=== PATIENT | female | born 1980 | race Caucasian/White ===

== ENCOUNTER 2016-07-08 11:41 | Outpatient (CLI) ==
[2012-12-17 13:57] VITALS: BMI 23.6
[2016-07-08 13:58] LABS: BASOPHILS % (AUTO) 0.3 % (0.0-3.0); EOSINOPHILS # (AUTO) 0.1 K/ul (0.0-0.7); EOSINOPHILS % (AUTO) 1.5 % (0.0-7.0); HEMOGLOBIN 13.9 g/dl (12.0-16.0); IMMATURE GRANULOCYTE % (AUTO) 0.3 % (0.0-5.0); LYMPHOCYTES # (AUTO) 1.4 K/uL (0.60-3.4); MEAN CORPUSCULAR HGB CONC 33.1 (31.8-35.4); MEAN CORPUSCULAR VOLUME 90.5 fl (81.0-99.0); MONOCYTES # (AUTO) 0.5 K/uL (0.4-2.0); MONOCYTES % (AUTO) 7.8 (0-10); NEUTROPHILS % (AUTO) 66.1; PLATELET COUNT 238 10^3/uL (140-440); RED BLOOD COUNT 4.64 10^6/ul (4.20-5.40); WHITE BLOOD COUNT 5.99 K/ul (4.6-10.2)
[2016-07-08 14:35] LABS: ALBUMIN 4.1 g/dL (3.4-5.0); ALBUMIN/GLOBULIN RATIO 1.14; ANION GAP 14.5; BILIRUBIN,TOTAL 0.42 mg/dL (0.00-1.20); BUN/CREATININE RATIO 12.65; CALCIUM 9.2 mg/dL (8.2-10.2); CHOL/HDL RATIO 3.5 (4.5-5.5); CREATININE 0.79 mg/dL (0.60-1.30); POTASSIUM 4.5 mmol/L (3.5-5.10); TOTAL PROTEIN 7.7 g/dL (6.4-8.2)
== END 2016-07-08 11:42 | disposition home or self-care (01) ==
LOC: LAB 11:41
PROVIDERS: ATTEND Nurse Practitioner Family
DX: J30.2 Other seasonal allergic rhinitis (principal); Z86.19 Personal history of other infectious and parasitic diseases
CPT/HCPCS: 36415; 80053; 80061; 80074; 82306; 84439; 84443; 85025

== ENCOUNTER 2016-10-25 12:08 | Outpatient (CLI) ==
[2012-12-17 13:57] VITALS: BMI 23.6
[2016-10-25 12:41] LABS: BILIRUBIN,URINE Negative (NEGATIVE); KETONES,URINE Negative (NEGATIVE); LEUKOCYTE ESTERASE ,URINE Negative (NEGATIVE); NITRITE,URINE Negative (NEGATIVE); PROTEIN,URINE Negative (NEGATIVE); URINE, BLOOD Negative (NEGATIVE)
[2016-10-25 12:44] LABS: ADD URINE MICROSCOPIC NO
== END 2016-10-25 12:09 | disposition home or self-care (01) ==
LOC: LAB 12:08
PROVIDERS: ATTEND Nurse Practitioner Family
DX: A54.9 Gonococcal infection, unspecified (principal); Z20.2 Contact with and (suspected) exposure to infections with a predominantly sexual mode of transmission; N76.0 Acute vaginitis
CPT/HCPCS: 81001; 87800

== ENCOUNTER 2016-11-28 18:58 | Emergency (ER) ==
[2016-11-28 19:12] VITALS: BP 110/73; TEMP 97.8; BMI 19.2
[2016-11-28] MEDS ORDERED: ROCEPHIN IM STA (19:23)
[2016-11-28] MEDS ORDERED: ZITHROMAX PO STA (19:23)
[2016-11-28] MEDS ORDERED: LIDOCAINE 1 % AMP 5 ML (SUTURES) IM STA (19:23)
--- NOTE | 2016-11-28 19:26 | ED.PDOC ---
General ED Provider: Dr. MIKO MILLS Chief Complaint: Vaginal Discharge/Swelling Stated Complaint: Patient is a 36 year old female who comes to the ED with Vaginal pain and swelling. States that the boyfriend has been using a spray product which she is not sure if she is allergic to it. She also states that a month ago and was treated for a vaginal bacterial infection, Bladder infection and STI her partner has an untreated STI and took off the condom today Time Seen by Physician: 19:22 Mode of Arrival: Walk-In Information Source: Patient Primary Care Provider: CHRISTOPHER VILLARREAL-[facility] Nursing and Triage Documentation Reviewed and Agree: Yes Review of Systems - Review Of Systems Constitutional: Reports: No symptoms Eyes: Reports: No symptoms Ears, Nose, Mouth, Throat: Reports: No symptoms Respiratory: Reports: No symptoms Cardiac: Reports: No symptoms GI: Reports: No symptoms : Reports: Dysuria, Discharge, Frequency, Pain, Urgency Musculoskeletal: Reports: No symptoms Skin: Reports: No symptoms Neurological: Reports: No symptoms Endocrine: Reports: No symptoms Hematologic/Lymphatic: Reports: No symptoms All Other Systems: Reviewed and Negative Past Medical History - Past Medical History Previously Healthy: Yes Endocrine: Reports: None Cardiovascular: Reports: None Respiratory: Reports: None Hematological: Reports: Anemia Gastrointestinal: Reports: None, Liver (Hepatitis C ) Genitourinary: Reports: UTI, Other (STI) Neuro/Psych: Reports: Anxiety, Depression, Bipolar Disorder Musculoskeletal: Reports: None Cancer: Reports: None Last Menstrual Period: 11/27/16 - Surgical History General Surgical History: Reports: Tubal ligation, Tonsillectomy, Adenoidectomy , Other (Adrenectomy, PE tubes. ) - Family History Family History: Reports: None - Social History Smoking Status: Former smoker Hx Substance Use: Yes (METH, COKE, HEROIN, CRACK, ICE, ACID, MARIJUANA) Alcohol Screening: None - Immunizations Tetanus Shot up to Date: No Physical Exam - Physical Exam Appearance: Ill-appearing, Thin Ill-appearing: Moderate Pain Distress: Severe Eyes: SYLVIA, EOMI, Conjunctiva clear ENT: Ears normal, Nose normal, Oropharynx normal Neck: Supple Respiratory: Airway patent, Breath sounds clear, Breath sounds equal, Respirations nonlabored Cardiovascular: RRR, Pulses normal, No rub, No murmur GI/: Soft, Nontender, No masses, Bowel sounds normal, No Organomegaly Musculoskeletal: Normal strength, ROM intact, No edema, No calf tenderness Skin: Warm, Dry, Normal color Neurological: Sensation intact, Motor intact, Reflexes intact, Cranial nerves intact, Alert, Oriented Psychiatric: Anxious Critical Care Note - Critical Care Note Total Time (mins): 10 Course - Course Orders, Labs, Meds: Lab Review 11/28/16 11/28/16 19:45 21:09 Urine Color Crystal Urine Clarity Slightly Urine pH 7.0 Ur Specific Rock 1.020 Urine Protein Trace Urine Glucose (UA) Negative Urine Ketones Negative Urine Blood Negative Urine Nitrite Negative Urine Bilirubin Negative Urine Urobilinogen 0.2 Ur Leukocyte Esterase 2+ Urine Microscopic RBC 5-10 Urine Microscopic WBC 10-20 Ur Squamous Epith Cells 20-30 Urine Bacteria 2+ Urine Mucus 1+ Clue Cells (Wet Prep) Moderate Trichomonas (Wet Prep) None seen Vaginal WBC Moderate ESTHER Preparation No fungal elements Orders Category Date Time Status CHLAMYDIA/GC AMPLIFICATION Stat LAB 11/28/16 19:50 Received ESTHER PREP Stat LAB 11/28/16 19:45 Completed UA [URINALYSIS C & S IF INDICATED] Stat LAB 11/28/16 21:09 Completed URINE CULTURE Routine LAB 11/28/16 21:14 Received WET PREP Stat LAB 11/28/16 19:45 Completed Azithromycin [Zithromax] MEDS 11/28/16 19:23 Discontinued 1,000 mg PO ONCE STA Ceftriaxone Sodium [Rocephin] MEDS 11/28/16 19:23 Discontinued 500 mg IM ONCE STA Lidocaine HCl/Pf [Lidocaine 1 % Amp 5 ml (Sutures)] MEDS 11/28/16 19:23 Discontinued 1 ml IM ONCE STA Phenazopyridine HCl [Pyridium] MEDS 11/28/16 20:02 Discontinued 100 mg PO ONCE STA Medications Discontinued Medications Generic Name Dose Route Start Last Admin Trade Name Freq PRN Reason Stop Dose Admin Azithromycin 1,000 mg 11/28/16 19:23 11/28/16 20:11 Zithromax PO 11/28/16 19:24 1,000 mg ONCE STA Administration Ceftriaxone Sodium 500 mg 11/28/16 19:23 11/28/16 20:11 Rocephin IM 11/28/16 19:24 500 mg ONCE STA Administration Lidocaine HCl 1 ml 11/28/16 19:23 11/28/16 20:11 Lidocaine 1 % Amp 5 Ml (Sutures) IM 11/28/16 19:24 1 ml ONCE STA Administration Phenazopyridine HCl 100 mg 11/28/16 20:02 11/28/16 20:29 Pyridium PO 11/28/16 20:03 100 mg ONCE STA Administration Vital Signs: Temp Pulse Resp BP Pulse Ox 11/28/16 18:59 97.8 F 105 H 18 110/73 99 Departure - Departure Time of Disposition: 21:42 Disposition: HOME SELF-CARE Discharge Problem: Vaginal discharge, Vaginal irritation, Bacterial vaginosis Instructions: Bacterial Vaginosis (ED), Sexually Transmitted Diseases (ED), Cervicitis (ED), Safe Sex (ED), Condom Use (ED) Condition: Fair Pt referred to PMD for follow-up: Yes Additional Instructions: Push fluids Avoid sexual contact until fully treated. Have your partner treated as well and have no sex for 10 days after treatment Use condoms all the time. Follow up with the clinic or health department. Prescriptions: Clindamycin HCl 300 mg PO BID #20 capsule Fluconazole [Diflucan] 150 mg PO ONCE #1 tablet Tramadol HCl [Ultram] 50 mg PO Q6H PRN #10 tablet PRN Reason: Severe Pain Allergies/Adverse Reactions: Allergies No Known Allergies Allergy (Unverified 11/28/16 19:12) Home Medications: Ambulatory Orders Bupropion HCl [Wellbutrin Xl] 300 mg PO DAILY 12/17/12 Clonazepam [Klonopin] 1 mg PO TID 10/25/16 Clindamycin HCl 300 mg PO BID #20 capsule 11/28/16 Fluconazole [Diflucan] 150 mg PO ONCE #1 tablet 11/28/16 Tramadol HCl [Ultram] 50 mg PO Q6H PRN #10 tablet 11/28/16 Disposition Discussed With: Patient, Family Complaint Exam - Complaint/Exam Patient Complains of: Reports: Vaginal discharge Onset/Duration: 2 days Symptoms Are: Still present Timing: Constant Initial Severity: Moderate Current Severity: Severe Location of Pain: Reports: Diffuse, Vulva Character: Reports: Burning, Dull, Cramping, Dark urine, Cloudy urine Aggravating: Reports: [place], Urination Associated Signs and Symptoms: Reports: Dysuria, Increased urine frequency, Vaginal discharge Related History: Reports: Similar episode, Prior STD Hx, PID Surgical Obstruction Risk Factors: Reports: None RH Status: Unknown Related Surgical History: Reports: Tubal Ligation Abdominal Findings: Present: None Vulva Exam: Present: Labial lesions, Labial swelling Vaginal Exam: Present: Discharge Cervical Exam: Present: Discharge, Tenderness Uterine Exam: Tenderness Adnexal Exam: Present: Tender Differential Diagnoses: Ovarian Cyst, Ovarian Torsion, PID, STD, UTI
[2016-11-28] MEDS ORDERED: PYRIDIUM PO STA (20:02)
[2016-11-28 20:23] LABS: KOH PREP NO FUNGAL ELEMENTS (NOT PRESENT); WBC MODERATE (FEW)
[2016-11-28 21:13] LABS: BILIRUBIN,URINE Negative (NEGATIVE); KETONES,URINE Negative (NEGATIVE); LEUKOCYTE ESTERASE ,URINE 2+ (NEGATIVE); NITRITE,URINE Negative (NEGATIVE); PROTEIN,URINE Trace (NEGATIVE); URINE, BLOOD Negative (NEGATIVE)
[2016-11-28 21:14] LABS: ADD URINE MICROSCOPIC YES
[2016-11-28 21:22] LABS: BACTERIA,URINE 2+ (NOT PRESENT)
== END 2016-11-28 21:50 | disposition home or self-care (01) ==
LOC: ED 18:58
DX: N76.0 Acute vaginitis (principal)
CPT/HCPCS: 36415; 81001; 87086; 87210; 87800; 96372; 99283

== ENCOUNTER 2018-12-30 15:19 | Outpatient (CLI) | END 2018-12-30 15:20 | disposition home or self-care (01) | LOC: LAB 15:19 | PROVIDERS: ATTEND Nurse Practitioner Family | DX: Z00.00 Encounter for general adult medical examination without abnormal findings (principal); Z86.19 Personal history of other infectious and parasitic diseases | CPT/HCPCS: 36415; 80053; 80061; 80074; 84443; 85025; 86708; 86803; 87340; 87522 ==